=== PATIENT | male | born 1985 | race Caucasian/White ===

== ENCOUNTER 2018-04-28 15:57 | Emergency (ER) | payer OTHER ==
--- NOTE | 2018-04-28 16:20 | ERPHSYRPT ---
- History of Present Illness Time Seen by Provider: 04/28/18 16:15 Source: patient Exam Limitations: no limitations Physician History: 33-year-old white male arrives with complaint of pain and swelling left knee with bruising symptoms since noon today. Patient states he fell off of stilts landing on his left knee he has the above complaints. Past medical history is negative. Past surgical history is negative. Social history patient denies tobacco alcohol or illicit drug use. Method of Injury: fell (fell landing on his knee(left)) Occurred: this afternoon (noon today) Quality: constant, aching Severity of Pain-Max: moderate Severity of Pain-Current: mild Lower Extremities Pain: thigh: left Modifying Factors: Improves With: nothing Associated Symptoms: none Allergies/Adverse Reactions: No Known Drug Allergies Allergy (Unverified 04/28/18 16:28) Home Medications: No Reportable Medications [No Reported Medications] 04/28/18 [History] - Review of Systems Constitutional: No Fever, No Chills Eyes: No Symptoms Ears, Nose, & Throat: No Symptoms Respiratory: No Cough, No Dyspnea Cardiac: No Chest Pain, No Edema, No Syncope Abdominal/Gastrointestinal: No Abdominal Pain, No Nausea, No Vomiting, No Diarrhea Genitourinary Symptoms: No Dysuria Musculoskeletal: Other (pain, swelling, ecchymosis left anterior knee) Skin: No Rash Neurological: No Dizziness, No Focal Weakness, No Sensory Changes Psychological: No Symptoms Endocrine: No Symptoms All Other Systems: Reviewed and Negative - Past Medical History Pertinent Past Medical History: No - Past Surgical History Past Surgical History: No - Nursing Vital Signs Nursing Vital Signs: Initial Vital Signs Temperature 98.3 F 04/28/18 16:04 Pulse Rate 85 04/28/18 16:04 Respiratory Rate 16 04/28/18 16:04 Blood Pressure 145/93 04/28/18 16:04 O2 Sat by Pulse Oximetry 98 04/28/18 16:04 Pain Scale Pain Intensity 3 - Physical Exam General Appearance: mild distress Eyes, Ears, Nose, Throat Exam: moist mucous membranes Neck Exam: non-tender, supple Cardiovascular/Respiratory Exam: chest non-tender, normal breath sounds, regular rate/rhythm, no respiratory distress Gastrointestinal/Abdominal Exam: non-tender, guarding Hips Exam: bilateral: non-tender, normal inspection, normal range of motion, no evidence of injury Legs Exam: bilateral leg: non-tender, normal inspection, normal range of motion , no evidence of injury Knees Exam: right knee: non-tender, normal inspection, normal range of motion, no evidence of injury, left knee: other (Left knee with palpable hematoma anteriorly ecchymosis anterior left knee, mild tenderness with palpation lrft anterior knee.) Ankle Exam: bilateral ankle: non-tender, normal inspection, normal range of motion, no evidence of injury Foot Exam: bilateral foot: non-tender, normal inspection, normal range of motion , no evidence of injury DTR - Lower Extremities Exam: ankle (R): 2+, ankle (L): 2+ Neuro/Tendon Exam: normal sensation, normal motor functions Mental Status Exam: alert, oriented x 3, cooperative Skin Exam: normal color, warm, dry SpO2 Interpretation: normal - Course Nursing assessment & vital signs reviewed: Yes - Radiology Exams Left Knee X-ray Interpretation: Interpreted by me (X-Ray left knee, soft tissue swelling anteriorly, positive effusion, no fractures or subluxation.) Ordered Tests: Active Orders 24 hr Category Date Time Status Bob Bandage Application -[facility] STAT Care 04/28/18 16:45 Active Immobilizer STAT Care 04/28/18 16:45 Active KNEE (3 VIEWS) Stat Exams 04/28/18 16:14 Taken - Progress Progress: improved Progress Note: 04/28/18 16:19 33-year-old white male arrives with complaint of pain and swelling left anterior knee since noon today. He states he was on stilts and fell forward striking his left knee. He has a moderate amount of swelling, of large hematoma to the anterior knee tenderness with palpation. Will go ahead and get an x-ray of the left knee. Including sunrise. Patient was offered Toradol for pain patient really doesn't want any pain medications at this time. 04/28/18 16:50 X-ray left knee: Soft tissue swelling. Left knee effusion. Left knee is reexamined hematoma anteriorly is diminishing. Patient with minimal tenderness with palpation. Left knee is stable to anterior drawer posterior drawer MCL stress LCL stress. Will go ahead and apply Bob wrap immobilizer. Patient does not want pain medication. Patient advised to ice his left knee 24-48 hours. Tylenol as needed for pain. - Departure Time of Disposition: 16:51 Departure Disposition: Home Clinical Impression: Effusion, left knee Accidental fall Qualifiers: Encounter type: initial encounter Qualified Code(s): W19.XXXA - Unspecified fall, initial encounter Contusion of left knee Qualifiers: Encounter type: initial encounter Qualified Code(s): S80.02XA - Contusion of left knee, initial encounter Condition: Fair Critical Care Time: No Referrals: MAURICE SHETH MD [Primary Care Provider] - Instructions: Knee Pain (DC) Additional Instructions: Return home. Ice and elevate left knee 24-48 hours. Use immobilizer 48-72 hours Bob wrap 48-72 hours. Tylenol every 4 hours as needed for pain. Follow-up with Dr. Sheth or [facility] ortho clinc return for acute distress or for severe symptoms. Your x-rays have been preliminarily read, they will be reread tomorrow, you'll be contacted if any discrepancies are noted,
[2018-04-28 17:04] VITALS: BP 134/78; PULSE 80; O2SAT 99
--- NOTE | 2018-04-28 20:24 | XRAY ---
Indication: Pain and bruising following fall. Comparison: None 3 views of the left knee demonstrates anterior soft tissue swelling. No other bony, articular, or soft tissue abnormalities.
== END 2018-04-28 17:00 | disposition home or self-care (01) ==
LOC: ED 15:57
DX: M25.462 Effusion, left knee (principal); W17.89XA Other fall from one level to another, initial encounter; S80.02XA Contusion of left knee, initial encounter; M25.562 Pain in left knee
CPT/HCPCS: 73562; 99284; L1830